=== PATIENT | female | born 1960 ===

== ENCOUNTER 2017-01-23 08:28 | Emergency (ER) | payer OTHER ==
[2017-01-23 08:29] VITALS: BMI 32.3
[2017-01-23] MEDS ORDERED: Oxycodone/Acetaminophen 5/325 mg Tab PO STA (09:30)
--- NOTE | 2017-01-23 09:34 | ED PDOC ---
Arrival/HPI - General Chief Complaint: Lower Extremity Problem/Injury Time Seen by Provider: 01/23/17 09:28 Historian: Patient - History of Present Illness Narrative History of Present Illness (Text): 01/23/17 09:31 56 y/o female, pmh including rt. knee pain for over 1 year and asthma, nkda, post menopausal, c/o rt. knee pain on and off x 1 year and more severely for the past 1 month with no injury or fall. Aching pain, aggravated by movement, no numbness or tingling, no clarification pain or cold extremities, no night sweat, no dizziness, no rash, no palpitation, no other medical or psychological complaints. Past Medical History - Provider Review Nursing Documentation Reviewed: Yes - Infectious Disease Hx of Infectious Diseases: None - Cardiac Hx Cardiac Disorders: No - Pulmonary Hx Respiratory Disorders: Yes Hx Asthma: Yes - Neurological Hx Neurological Disorder: No - HEENT Hx HEENT Disorder: No - Renal Hx Renal Disorder: No - Endocrine/Metabolic Hx Endocrine Disorders: No - Hematological/Oncological Hx Blood Disorders: No - Integumentary Hx Dermatological Disorder: No - Musculoskeletal/Rheumatological Hx Musculoskeletal Disorders: No - Gastrointestinal Hx Gastrointestinal Disorders: No - Genitourinary/Gynecological Hx Genitourinary Disorders: No - Psychiatric Hx Psychophysiologic Disorder: No Hx Substance Use: No - Surgical History Hx Appendectomy: Yes Hx Cholecystectomy: Yes Hx Hysterectomy: Yes Other/Comment: hernia, Gallbladder surgery - Anesthesia Hx Anesthesia: No Hx Anesthesia Reactions: No Hx Malignant Hyperthermia: No Family/Social History - Physician Review Nursing Documentation Reviewed: Yes Family/Social History: Unknown Family HX Smoking Status: Never Smoked Hx Alcohol Use: No Hx Substance Use: No Allergies/Home Meds Allergies/Adverse Reactions: Allergies No Known Allergies Allergy (Verified 01/23/17 08:40) Home Medications: Home Meds Medication Instructions Recorded Confirmed Fluticasone/Salmeterol [Advair 1 puff INH DAILY 01/23/17 01/23/17 250-50 Diskus] Ibuprofen [Motrin Tab] 800 mg PO PRN PRN 01/23/17 01/23/17 Review of Systems - Review of Systems Constitutional: absent: Fatigue, Fevers Eyes: absent: Vision Changes ENT: absent: Hearing Changes Respiratory: absent: SOB, Cough Cardiovascular: absent: Chest Pain Gastrointestinal: absent: Abdominal Pain, Nausea, Vomiting Musculoskeletal: Arthralgias. absent: Back Pain, Neck Pain, Joint Swelling, Myalgias Skin: absent: Rash, Pruritis, Skin Lesions Neurological: absent: Headache, Dizziness Physical Exam Vital Signs Reviewed: Yes Temperature: Afebrile Blood Pressure: Normal Pulse: Regular Respiratory Rate: Normal Appearance: Positive for: Well-Appearing, Non-Toxic Pain Distress: Moderate Mental Status: Positive for: Alert and Oriented X 3 - Systems Exam Head: Present: Atraumatic, Normocephalic Pupils: Present: PERRL Extroacular Muscles: Present: EOMI Conjunctiva: Present: Normal Mouth: Present: Moist Mucous Membranes Neck: Present: Normal Range of Motion Respiratory/Chest: Present: Clear to Auscultation, Good Air Exchange. No: Respiratory Distress, Accessory Muscle Use Cardiovascular: Present: Regular Rate and Rhythm, Normal S1, S2, Other (no pedal edema). No: Murmurs Abdomen: Present: Normal Bowel Sounds. No: Tenderness, Distention, Peritoneal Signs, Rebound, Guarding Back: Present: Normal Inspection Upper Extremity: Present: Normal Inspection. No: Cyanosis, Edema Lower Extremity: Present: Normal Inspection, Other (RLE: +ttp and mild swelling noted on the rt. medial aspect of the knee with mild +ttp on the rt. calf region , negative rodriguez signs, no cold extremities, +DPPT pulses, capillary refill< 2 seconds, neurovascular intact. ). No: Edema Neurological: Present: GCS=15, CN II-XII Intact, Speech Normal Skin: Present: Warm, Dry, Normal Color. No: Rashes Psychiatric: Present: Alert, Oriented x 3, Normal Insight, Normal Concentration Medical Decision Making ED Course and Treatment: 01/23/17 09:36 -Rt. knee xray -RLE venuous doppler -motrin/percocet -Observe and reassess 01/23/17 11:54 -RT. knee xray show Osteoarthritis involving the patellofemoral joint. -RLE Venuous doppler: Rt. lower extremity venuous doppler: as per preliminary report, no acute dvt. -Pt. stated that she feels better but would like more pain med prior to discharge, morphine IM 2mg ordered and she is not driving home. -Discharge home with crutches, eleazar wrap, naproxen, heat compression, follow up with your own pmd and orthopedic within 2 days, return to the ER for any new or worsening signs or symptoms. - RAD Interpretation Radiology Orders: 01/23/17 09:30 KNEE W PATELLA RIGHT 3 VIEW [RAD] Stat DUPLEX LOWER EXTRM VEIN RIGHT [US] Stat Rt. knee xray: PROCEDURE: Right Knee Radiographs. HISTORY: rt. knee pain COMPARISON: None. FINDINGS: BONES: Normal. No fracture. JOINTS: There is joint space narrowing and osteophyte formation in the patellofemoral joint JOINT EFFUSION: None. OTHER FINDINGS: None. IMPRESSION: Osteoarthritis involving the patellofemoral joint. Rt. lower extremity venuous doppler: as per preliminary report, no acute dvt. Salvager: Radiologist - Medication Orders Current Medication Orders: Discontinued Medications Ibuprofen (Motrin Tab) 600 mg PO STAT STA Stop: 01/23/17 09:31 Last Admin: 01/23/17 10:53 Dose: 600 mg [facility] Pain/Vitals Document 01/23/17 10:53 (Rec: 01/23/17 10:53 [id number] Pain Reassessment Is This A Pain ReAssessment? Yes Sleep Is patient sleeping during reassessment? No Presence of Pain Presence of Pain Yes Oxycodone/Acetaminophen (Percocet 5/325 Mg Tab) 1 tab PO STAT STA Stop: 01/23/17 09:31 Last Admin: 01/23/17 10:51 Dose: 1 tab [facility] Pain Assessment Document 01/23/17 10:51 (Rec: 01/23/17 10:53 [id number] Pain Reassessment Is this a pain reassessment? Yes Sleep Is patient sleeping during reassessment? No - PA / [employer] / Resident Statement MD/DO has reviewed & agrees with the documentation as recorded. Disposition/Present on Arrival - Present on Arrival Any Indicators Present on Arrival: No History of DVT/PE: No History of Uncontrolled Diabetes: No Urinary Catheter: No History of Decub. Ulcer: No History Surgical Site Infection Following: None - Disposition Have Diagnosis and Disposition been Completed?: Yes Diagnosis: Osteoarthritis Disposition: HOME/ ROUTINE Disposition Time: 11:56 Patient Plan: Discharge Condition: GOOD Additional Instructions: -Discharge home with crutches, eleazar wrap, naproxen, heat compression, follow up with your own pmd and orthopedic within 2 days, return to the ER for any new or worsening signs or symptoms. Prescriptions: Naproxen 500 mg PO BID PRN #22 tab PRN Reason: Other Referrals: PCP,NO [Primary Care Provider] - Follow up with primary Sher Branch III, MD [Medical Doctor] - Follow up with primary Forms: WORK NOTE
--- NOTE | 2017-01-23 11:12 | RAD ---
PROCEDURE: Right Knee Radiographs. HISTORY: rt. knee pain COMPARISON: None. FINDINGS: BONES: Normal. No fracture. JOINTS: There is joint space narrowing and osteophyte formation in the patellofemoral joint JOINT EFFUSION: None. OTHER FINDINGS: None. IMPRESSION: Osteoarthritis involving the patellofemoral joint.
[2017-01-23] MEDS ORDERED: Morphine 2 mg/ml ISec IM STA (11:52)
[2017-01-23 12:22] VITALS: RESP 18
[2017-01-23 12:24] VITALS: PULSE 80
[2017-01-23 12:46] VITALS: BP 143/93; TEMP 98.4; O2SAT 97
--- NOTE | 2017-01-26 09:24 | US ---
PROCEDURE: Right lower extremity venous US HISTORY: Leg pain and swelling. Evaluate for DVT. PHYSICIAN(S): Juwan Prince M.D. TECHNIQUE: Duplex sonography and color-flow Doppler with graded compression were used to evaluate the deep venous system of the right lower extremity. The exam is limited by body habitus and edema FINDINGS: The visualized deep venous system of the right lower extremity is sonographically normal and compressible. Normal waveforms and augmentation are seen. There is no sonographic evidence for deep venous thrombosis in the visualized segments of the right lower extremity. IMPRESSION: 1. No sonographic evidence for deep venous thrombosis in the visualized segments of the right lower extremity.
== END 2017-01-23 12:47 | disposition home or self-care (01) ==
LOC: ED 08:28
DX: M17.11 Unilateral primary osteoarthritis, right knee (principal)
CPT/HCPCS: 73562; 93971; 96372; 99284; J2270

== ENCOUNTER 2017-05-20 13:30 | Emergency (ER) | payer OTHER ==
[2017-05-20 13:30] VITALS: BMI 32.3
--- NOTE | 2017-05-20 14:06 | ED PDOC ---
Arrival/HPI - General Chief Complaint: Cough, Cold, Congestion Time Seen by Provider: 05/20/17 14:01 Historian: Patient - History of Present Illness Narrative History of Present Illness (Text): 05/20/17 14:02 This 56 yo female with pmh asthma, presents to this ED c/o wheezing, cough x 4 weeks. Patient stated she has been taking Albuterol HFA PRN with mild relief of symptoms. Denies cp, [place], dizziness, or abnormal gait. She denies other somatic complains. Time/Duration: Other (see hpi) Context: Home Past Medical History - Provider Review Nursing Documentation Reviewed: Yes - Infectious Disease Hx of Infectious Diseases: None - Reproductive Menopause: Yes - Cardiac Hx Cardiac Disorders: No - Pulmonary Hx Respiratory Disorders: Yes Hx Asthma: Yes - Neurological Hx Neurological Disorder: No - HEENT Hx HEENT Disorder: No - Renal Hx Renal Disorder: No - Endocrine/Metabolic Hx Endocrine Disorders: No - Hematological/Oncological Hx Blood Disorders: No - Integumentary Hx Dermatological Disorder: No - Musculoskeletal/Rheumatological Hx Musculoskeletal Disorders: No - Gastrointestinal Hx Gastrointestinal Disorders: No - Genitourinary/Gynecological Hx Genitourinary Disorders: No - Psychiatric Hx Psychophysiologic Disorder: No Hx Substance Use: No - Surgical History Hx Appendectomy: Yes Hx Cholecystectomy: Yes Hx Hysterectomy: Yes Other/Comment: hernia, Gallbladder surgery - Anesthesia Hx Anesthesia: No Hx Anesthesia Reactions: No Hx Malignant Hyperthermia: No Family/Social History - Physician Review Nursing Documentation Reviewed: Yes Family/Social History: Other Smoking Status: Never Smoked Hx Alcohol Use: No Hx Substance Use: No Allergies/Home Meds Allergies/Adverse Reactions: Allergies No Known Allergies Allergy (Verified 05/20/17 13:37) Home Medications: Home Meds Medication Instructions Recorded Confirmed Fluticasone/Salmeterol [Advair 1 puff INH DAILY 01/23/17 05/20/17 250-50 Diskus] Albuterol Sulfate [Proair Hfa] 0.09 mg IH PRN PRN 05/20/17 05/20/17 Review of Systems - Review of Systems Constitutional: Normal. absent: Fatigue, Weight Change, Fevers Eyes: Normal ENT: Normal Respiratory: Cough, Wheezing Cardiovascular: Normal Gastrointestinal: Normal Genitourinary Female: Normal Musculoskeletal: Normal Skin: Normal Neurological: Normal Endocrine: Normal Hemo/Lymphatic: Normal Psychiatric: Normal Physical Exam Vital Signs Temp Pulse Resp BP Pulse Ox 05/20/17 15:21 97.4 F L 76 16 128/98 H 99 05/20/17 13:33 98.1 F 110 H 20 143/85 97 Temperature: Afebrile Blood Pressure: Normal Pulse: Regular Respiratory Rate: Normal Appearance: Positive for: Well-Appearing, Non-Toxic, Comfortable Pain Distress: None Mental Status: Positive for: Alert and Oriented X 3 - Systems Exam Head: Present: Atraumatic, Normocephalic Pupils: Present: PERRL Extroacular Muscles: Present: EOMI Conjunctiva: Present: Normal Mouth: Present: Moist Mucous Membranes Neck: Present: Normal Range of Motion Respiratory/Chest: Present: Wheezes, Decreased Breath Sounds. No: Respiratory Distress, Accessory Muscle Use, Rales, Retracting, Rhonchi, Tachypneic Cardiovascular: Present: Regular Rate and Rhythm, Normal S1, S2. No: Murmurs Abdomen: Present: Normal Bowel Sounds. No: Tenderness, Distention, Peritoneal Signs Back: Present: Normal Inspection. No: CVA Tenderness Upper Extremity: Present: Normal Inspection, Normal ROM. No: Cyanosis, Edema Lower Extremity: Present: Normal Inspection, Normal ROM. No: Edema Neurological: Present: GCS=15, CN II-XII Intact, Speech Normal Skin: Present: Warm, Dry, Normal Color. No: Rashes Psychiatric: Present: Alert, Oriented x 3, Normal Insight, Normal Concentration Medical Decision Making ED Course and Treatment: 05/20/17 15:54 Re-evaluation. Patient feels better. Discussed results and plan with patient who expresses understanding. All questions answered and there is agreement with the plan to discharge home with instructions. Patient stable for discharge. Return if symptoms persist or worsen. Lungs CTA b/l, no wheezing. Patient was recommended to f/u clinic for asthma management. Re-evaluation Time: 15:54 Reassessment Condition: Re-examined, Improved - RAD Interpretation Narrative RAD Interpretations (Text): 05/20/17 15:54 Chest x-rays: NAD Radiology Orders: 05/20/17 14:03 CHEST PORTABLE [RAD] Stat - Medication Orders Current Medication Orders: Discontinued Medications Albuterol/Ipratropium (Duoneb 3 Mg/0.5 Mg (3 Ml) Ud) 3 ml IH Q15M SHAVONNE Stop: 05/20/17 14:46 Last Admin: 05/20/17 14:45 Dose: 3 ml Methylprednisolone (Solu-Medrol) 125 mg IVP STAT STA Stop: 05/20/17 14:06 Last Admin: 05/20/17 14:17 Dose: 125 mg IVP Administration Document 05/20/17 14:17 CHELSEA (Rec: 05/20/17 14:17 CHELSEA [id number]) Charges for Administration # of IVP Administrations 1 Disposition/Present on Arrival - Present on Arrival Any Indicators Present on Arrival: No History of DVT/PE: No History of Uncontrolled Diabetes: No Urinary Catheter: No History of Decub. Ulcer: No History Surgical Site Infection Following: None - Disposition Have Diagnosis and Disposition been Completed?: Yes Diagnosis: Asthma exacerbation Disposition: HOME/ ROUTINE Disposition Time: 15:55 Patient Plan: Discharge Condition: GOOD Discharge Instructions (ExitCare): Asthma in Adults Print Language: MALAY Additional Instructions: Llame a la clinica para seguimiento medico. [place] [facility] [place] sido indicado. Regrese a la emergencia si problema regresa Prescriptions: Albuterol HFA [Ventolin HFA 90 mcg/actuation (8 g)] 2 puff IH [id number] PRN #120 puff PRN Reason: Wheezing Azithromycin [Z-Rito] 250 mg PO DAILY #6 tab Prednisone [Deltasone] 40 mg PO DAILY #8 tablet Referrals: PCP,NO [Primary Care Provider] - Follow up with primary [facility] [Outside] - Follow up with primary [facility] [place] [Outside] - Follow up with primary Forms: [employer] (Panamanian)
[2017-05-20] MEDS: Albuterol-Ipratrop 3 mg / 0.5 (3 ml) UD IH SCH ×3 (14:17→14:45)
--- NOTE | 2017-05-20 14:23 | RAD ---
HISTORY: Cough COMPARISON: 04/15/2016 FINDINGS: LUNGS: No active pulmonary disease. PLEURA: No significant pleural effusion identified, no pneumothorax apparent. CARDIOVASCULAR: No radiographic findings to suggest acute or significant cardiovascular disease. OSSEOUS STRUCTURES: No significant abnormalities. VISUALIZED UPPER ABDOMEN: Normal. OTHER FINDINGS: None. IMPRESSION: No active disease. No significant interval change compared to the prior examination(s). Concordant results with the preliminary interpretation rendered by the emergency department physician procedure.
[2017-05-20 15:22] VITALS: BP 128/98; PULSE 76; RESP 16; TEMP 97.4; O2SAT 99
== END 2017-05-20 16:05 | disposition home or self-care (01) ==
LOC: ED 13:30
DX: J45.901 Unspecified asthma with (acute) exacerbation (principal)
CPT/HCPCS: 71045; 94150; 96374; 99283; J2930